=== PATIENT | male | born 1975 | race Caucasian/White ===

== ENCOUNTER → 2020-06-25 | Day surgery (SDC) | payer OTHER ==
[~2020-06-25] MED LIST: PERCOCET 5-3251 EACH PO
[2020-06-25 11:39] LABS: HCT 42.5 % (42.0-52.0); HGB 14.5 g/dl (13.2-18.0); MCH 31.2 pg (25.0-31.0); MCHC 34.1 g/dL (32.0-36.0); MCV 91.4 fL (78.0-100.0); MPV 9.6 fL (6.0-9.5); RBC 4.65 M/uL (4.70-6.00); RDW 12.2 % (11.5-14.0); WBC 4.5 K/uL (4.0-10.5)
[2020-06-25 12:10] LABS: ALBUMIN 3.9 g/dL (3.4-5.0); BILIRUBIN - TOTAL 0.6 mg/dL (0.2-1.0); CREATININE 0.81 mg/dL (0.67-1.17); GLOBULIN (CALCULATION) 2.9 g/dL; POTASSIUM 4.1 mmol/L (3.5-5.1); TOTAL PROTEIN 6.8 g/dL (6.4-8.2)
== END | disposition home or self-care (01) ==
LOC: FAS 10:23
PROVIDERS: Orthopaedic Surgery
DX: S83.232A Complex tear of medial meniscus, current injury, left knee, initial encounter (principal); M25.869 Other specified joint disorders, unspecified knee; M67.52 Plica syndrome, left knee; Z98.890 Other specified postprocedural states; Z20.822 Contact with and (suspected) exposure to COVID-19; X58.XXXA Exposure to other specified factors, initial encounter
CPT/HCPCS: 36415; 80053; J1100; J1170; J1885; J2250; J2405; J2704